=== PATIENT | female | born 1945 | race Caucasian/White ===

== ENCOUNTER 2022-08-24 06:08 | Day surgery (SDC) | payer MEDICARE, MEDICAID ==
[~2022-08-24] VITALS: Ht 165.1 cm; Wt 55.8 kg
[2022-08-24] VITALS (10 sets, daily range): BP systolic 132–167; BP diastolic 70–81
[~2022-08-24 06:08] MED LIST: FLUO40CA PO; famotidine 20mg tablet PO ONE; ringers solution, lacted 1,000 ML IV SCH
[2022-08-24] MEDS ORDERED: cocaine 4% topical solution 4ml bottle ONE (06:40)
[2022-08-24] MEDS ORDERED: oxymetazoline 15 ML nasal spray NS ONE (06:41)
[2022-08-24] MEDS ORDERED: LIDOCAINE 1%/EPI 1:100,000 inj. 10 ML multi-dose vial ONE (06:41)
[2022-08-24] MEDS ORDERED: tranexamic acid 100mg/ml inj. ONE ×2 (06:41)
[2022-08-24] MEDS ORDERED: mupirocin 2% ointment 22GM ONE (06:41)
[2022-08-24] MEDS ORDERED: oxymetazoline 15 ML nasal spray NS PRN (07:08)
[2022-08-24] MEDS ORDERED: midazolam 1 mg/ML 2ml injection ONE (07:53)
[2022-08-24] MEDS ORDERED: propofol inj 20 ML IV ONE (07:53)
[2022-08-24] MEDS ORDERED: fentaNYL/PF 50MCG/1 ML 2ML syringe ONE (07:53)
[2022-08-24] MEDS ORDERED: dexamethasone sod phosphate 4mg/ml inj. ONE (07:54)
[2022-08-24] MEDS ORDERED: meperidine/PF 25mg/ml syringe IV PRN ×3 (08:05)
[2022-08-24] MEDS ORDERED: morphine 4 MG/ML inj SYRINge IV PRN (08:05)
[2022-08-24] MEDS ORDERED: proCHLORperazine 10 MG/2 ml inj IV PRN (08:05)
[2022-08-24] MEDS ORDERED: morphine 2 MG/ML inj. syringe IV PRN (08:05)
[2022-08-24] MEDS ORDERED: ringers solution, lacted 1,000 ML IV SCH (08:05)
[2022-08-24] MEDS ORDERED: labetalol 20mg/4ml (5mg/ml) syringe IV PRN (08:05)
[2022-08-24] MEDS ORDERED: ondansetron/PF 4mg/2ml inj IV PRN (08:05)
[2022-08-24] MEDS ORDERED: cefTAZidime 1gm inj ONE (08:34)
[2022-08-24] MEDS ORDERED: tranexamic acid inj. 1,000 MG in normal saline IV soln 100ML IV ONE (08:35)
[2022-08-24] MEDS ORDERED: ondansetron/PF 4mg/2ml inj ONE (09:15)
--- NOTE | 2022-08-24 09:30 | NUR ---
Received from OR via , accompanied by Anesthesiologist and report given by Anesthesiolgist. PATIENT A&OX4, DENIES PAIN, V/S WNL, NEUROVASCULAR CHECKS INTACT, SCD ON, NASAL COTTONOIDS IN BILATERAL SINUS W/ NO VISIBLE DRAINAGE SEEN. 20G RUE
[2022-08-24] MEDS ORDERED: salt irrigation nasal spray 45 ML SPRAY NS PRN (09:50)
--- NOTE | 2022-08-24 10:00 | NUR ---
COTTONOIDS D/C NS AND OINTMENT GIVEN
--- NOTE | 2022-08-24 10:50 | NUR ---
PATIENT A&OX4, DENIES PAIN, V/S WNL, NEUROVASCULAR CHECKS INTACT, SCD OFF, NASAL COTTONOIDS IN BILATERAL SINUS REMOVED NO VISIBLE DRAINAGE SEEN, 20G PIV D/C. PT UP AND DRESSED,, DISCUSSED HOME CARE FOR NASAL IRRIGATION AND MEDICATIONS, PT USED OCEAN SPRAY AND OINTMENT BEFORE LEAVING, ALL QUESTIONS ANSWERED, FRESH GAUZE PLACE UNDER NOSE, PT TAKEN WITH SUPPLIES AND BELONGINGS TO VEHICLE, TRANSPORTED BY FRIEND HOME.
== END 2022-08-24 10:50 | disposition home or self-care (01) ==
LOC: PAS 06:08
PROVIDERS: ATTEND Otolaryngology
DX: J34.2 Deviated nasal septum (principal); J34.3 Hypertrophy of nasal turbinates; J32.9 Chronic sinusitis, unspecified; J44.9 Chronic obstructive pulmonary disease, unspecified; F41.9 Anxiety disorder, unspecified; Z98.890 Other specified postprocedural states; Z79.899 Other long term (current) drug therapy; Z20.822 Contact with and (suspected) exposure to COVID-19
CPT/HCPCS: 30140; 30520; 31253; 31267; 36415; 61782; 82948; 87070; 87075; 87102; 87635; 93005; A6402; C9250; C9803; J0713; J1100; J2175; J2250; J2270; J2405; J2704; J3010; J3490; J7030; J7040; J7120; U0003; U0005; Z7506; Z7508; Z7512; 88300; 88304; 88311; A4618; A6449; A7000

== ENCOUNTER 2023-06-30 14:08 | Emergency (ER) | payer MEDICARE, MEDICAID ==
[~2023-06-30] VITALS: Ht 165.1 cm; Wt 51.4 kg
[~2023-06-30 14:08] MED LIST changes: -famotidine 20mg tablet PO ONE; -ringers solution, lacted 1,000 ML IV SCH
[2023-06-30 14:23] VITALS: BP 143/69; PULSE 69; TEMP 98; O2SAT 98
[2023-06-30] MEDS ORDERED: HYDROcodone/acetaminophen 5mg/325mg tablet PO ONE ×2 (16:35→21:20)
[2023-06-30] MEDS ORDERED: morphine 10mg/ml inj. IM ONE (19:15)
[2023-06-30] MEDS ORDERED: ondansetron 4mg rapidly disintigrating tab PO ONE (19:15)
[2023-06-30] MEDS ORDERED: HYDR-3965 PO (21:16)
[2023-06-30 21:49] VITALS: RESP 15
== END 2023-06-30 21:55 | disposition home or self-care (01) ==
LOC: ER 14:09
DX: S52.502A Unspecified fracture of the lower end of left radius, initial encounter for closed fracture (principal); S52.612A Displaced fracture of left ulna styloid process, initial encounter for closed fracture; Z79.899 Other long term (current) drug therapy; W19.XXXA Unspecified fall, initial encounter; Y93.89 Activity, other specified; Y92.89 Other specified places as the place of occurrence of the external cause; Y99.8 Other external cause status
CPT/HCPCS: 25605; 73110; 73130; 96372; 99284; J2274; A4565; A6449

== ENCOUNTER 2024-07-24 07:38 | Day surgery (SDC) | payer MEDICARE, MEDICAID ==
[~2024-07-24] VITALS: Ht 165.1 cm; Wt 51.9 kg
[2024-07-24] VITALS (12 sets, daily range): BP systolic 110–136; BP diastolic 56–70; PULSE 16–80; RESP 10–16; TEMP 97.6; O2SAT 96–100
[2024-07-24] MEDS: cefazolin 2gm/D5W 100mL 100 ML IV ONE (05:30)
[~2024-07-24 07:38] MED LIST changes: +CALCIUM, MAG, ZINC; -FLUO40CA PO; +MULT-1085 PO; +VIT C; +tranexamic acid inj. 1,000 MG in normal saline IV soln 100ML IV ONE
[2024-07-24] MEDS: ringers solution, lacted 1,000 ML IV SCH (08:29)
[2024-07-24] MEDS: famotidine 20mg tablet PO ONE (08:29)
[2024-07-24] MEDS ORDERED: methylPREDNISolone acetate 80mg/ml inj**IM only ONE (10:41)
[2024-07-24] MEDS ORDERED: LIDOcaine 1% w/EPI 1:100,000 inj. MDV 50 ML VIAL ONE (10:41)
[2024-07-24] MEDS ORDERED: cocaine 4% topical solution 4ml bottle ONE (10:41)
[2024-07-24] MEDS ORDERED: epiNEPHrine 1 mg/ml 30ml MDV ONE (10:41)
[2024-07-24] MEDS ORDERED: oxymetazoline 15 ML nasal spray NS ONE (10:42)
[2024-07-24] MEDS ORDERED: Thrombin (Bovine) 5,000 unit vial TP ONE (10:42)
[2024-07-24] MEDS ORDERED: mupirocin 2% ointment 22GM ONE (10:42)
[2024-07-24] MEDS ORDERED: sevoflurane 250ml liquid IH ONE (11:01)
[2024-07-24] MEDS ORDERED: LIDOcaine 2% (20mg/ml) 5ml vial ONE (11:08)
[2024-07-24] MEDS ORDERED: midazolam 1 mg/ML 2ml injection ONE (11:08)
[2024-07-24] MEDS ORDERED: fentaNYL/PF 50MCG/1 ML 2ML syringe ONE (11:08)
[2024-07-24] MEDS ORDERED: ondansetron/PF 4mg/2ml inj ONE (11:08)
[2024-07-24] MEDS ORDERED: acetaminophen 1,000mg/100ml IV 100 ML IV ONE (11:09)
[2024-07-24] MEDS ORDERED: ringers solution, lacted 1,000 ML IV SCH (11:45)
[2024-07-24] MEDS ORDERED: labetalol 20mg/4ml (5mg/ml) syringe IV PRN (11:45)
[2024-07-24] MEDS ORDERED: ondansetron/PF 4mg/2ml inj IV PRN (11:45)
[2024-07-24] MEDS ORDERED: morphine 4 MG/ML inj SYRINge IV PRN (11:45)
[2024-07-24] MEDS ORDERED: fentaNYL/PF 50MCG/1 ML 2ML syringe IV PRN ×2 (11:45)
[2024-07-24] MEDS ORDERED: morphine 2 MG/ML inj. syringe IV PRN (11:45)
[2024-07-24] MEDS ORDERED: hydrALAZINE 20mg/ml inj. IV PRN (11:45)
[2024-07-24] MEDS ORDERED: salt irrigation nasal spray 45 ML SPRAY NS SCH (13:00)
[2024-07-24] MEDS ORDERED: oxymetazoline 15 ML nasal spray NS SCH (20:00)
== END 2024-07-24 14:13 | disposition home or self-care (01) ==
LOC: PAS 07:38
PROVIDERS: ATTEND Otolaryngology
DX: J32.8 Other chronic sinusitis (principal); I10 Essential (primary) hypertension; J44.9 Chronic obstructive pulmonary disease, unspecified; Z86.73 Personal history of transient ischemic attack (TIA), and cerebral infarction without residual deficits; Z79.899 Other long term (current) drug therapy
CPT/HCPCS: 31254; 31267; 61782; 82948; 87070; 87075; 93005; A4618; A6402; A7000; J0131; J0171; J0690; J1100; J2001; J2250; J2405; J2704; J3010; J3490; J7030; J7040; J7120; Z7506; Z7508; Z7512; Z7610; J1010